=== PATIENT | female | born 1950 | race Caucasian/White ===

== ENCOUNTER → 2016-08-18 14:05 | Outpatient (CLI) | payer MEDICARE, BC | END | disposition home or self-care (01) | LOC: D.MRI 14:05 | DX: M79.671 Pain in right foot (principal) ==

== ENCOUNTER 2019-05-30 13:04 | Emergency (ER) | payer MEDICARE, BC ==
[~2019-05-30] VITALS: Ht 167.6 cm; Wt 71.4 kg
[2019-05-30 13:06] VITALS: Ht 167.6 cm; Wt 71.4 kg
[2019-05-30] MEDS ORDERED: TIAZAC/CARDIZE180 MG PO (13:10)
[2019-05-30] MEDS ORDERED: ZYRTEC10 MG PO (13:11)
[2019-05-30] MEDS ORDERED: LOW DOSE ASPIRI81 M1 PO (13:11)
[2019-05-30] MEDS ORDERED: VITAMIN B-121000 MCG PO (13:12)
[2019-05-30 14:31] LABS: BASOPHILS 0.5 % (0-2); EOSINOPHILS 2.8 % (0-7); IMMATURE GRANULOCYTES 0.1 % (0-5); LYMPHOCYTES 26.9 % (15-50); MCH 32.8 pg (26.0-34.0); MCHC 33.3 g/dL (31.0-37.0); MCV 98.5 fL (80.0-100.0); MEAN PLATELET VOLUME 11.1 fL (7.4-10.4); MONOCYTES 5.5 % (2-11); NEUTROPHILS 64.2 % (40-80); PLATELET COUNT 213 10x3/uL (130-400); RBC 4.57 10x6/uL (4.00-5.40); RDW 13.4 % (11.5-14.5); WBC 7.5 10x3/uL (4.8-10.8)
[2019-05-30 15:43] LABS: ALBUMIN 3.8 g/dL (3.4-5.0); ALKALINE PHOSPHATASE 72 U/L (46-116); ALT (SGPT) 22 U/L (10-68); BILIRUBIN - TOTAL 0.28 mg/dL (0.2-1.3); CALC OSMOLALITY 285 mosm/kg (275-300); CALCIUM 9.2 mg/dL (8.5-10.1); CARBON DIOXIDE 27.2 mmol/L (21.0-32.0); CHLORIDE - SERUM 105 mmol/L (98-107); CKMB 0.5 U/L (0.0-3.6); CREATINE KINASE 68 UL (21-215); CREATININE - SERUM 1.1 mg/dL (0.6-1.3); GLUCOSE 93 mg/dL (74-106); MAGNESIUM - SERUM 2.2 mg/dL (1.8-2.4); POTASSIUM - SERUM 3.9 mmol/L (3.5-5.1); PROTEIN - SERUM 6.9 g/dL (6.4-8.2); SODIUM 142 mmol/L (136-145); TROPONIN-I < 0.017 ng/mL (0.000-0.060); UREA NITROGEN 20 mg/dL (7-18); eGFR NON AFRICAN AMERICAN 52 mL/min (90-120)
[2019-05-30 16:07] LABS: APPEARANCE CLEAR (CLEAR); BILIRUBIN NEGATIVE (NEGATIVE); COLOR YELLOW (YELLOW); GLUCOSE NEGATIVE (NEGATIVE); KETONE NEGATIVE (NEGATIVE); NITRITE NEGATIVE (NEGATIVE); PROTEIN NEGATIVE (NEGATIVE); UROBILINOGEN NORMAL (NORMAL)
[2019-05-30 16:50] VITALS: BP 129/73
== END 2019-05-30 16:50 | disposition home or self-care (01) ==
LOC: D.ER 13:04
PROVIDERS: Family Medicine
DX: F07.81 Postconcussional syndrome (principal); R55 Syncope and collapse; I10 Essential (primary) hypertension

== ENCOUNTER → 2019-07-11 09:47 | Outpatient (CLI) | payer MEDICARE, BC ==
[2019-05-30 13:06] VITALS: BMI 25.4
[~2019-07-11 09:47] MED LIST: LOW DOSE ASPIRI81 M1 PO; TIAZAC/CARDIZE180 MG PO; VITAMIN B-121000 MCG PO; ZYRTEC10 MG PO
== END | disposition home or self-care (01) ==
LOC: D.HCCECHO 09:30
PROVIDERS: ATTEND Internal Medicine Cardiovascular Disease
DX: I10 Essential (primary) hypertension (principal)

== ENCOUNTER 2019-08-19 14:54 | Inpatient (IN) | payer MEDICARE, BC ==
[~2019-08-19] VITALS: Ht 167.6 cm; Wt 72.6 kg
[2019-09-06] MEDS ORDERED: VALTREX500 MG PO (14:51)
[2019-09-07] MEDS ORDERED: FLUTICASONE PRO16 GM NASAL (11:09)
[2019-09-07 12:31] LABS: CARBON DIOXIDE 30.1 mmol/L (21.0-32.0); CREATININE - SERUM 1.1 mg/dL (0.6-1.3); POTASSIUM - SERUM 4.1 mmol/L (3.5-5.1)
[2019-09-07 13:37] LABS: BASOPHILS 0.8 % (0-2); EOSINOPHILS 3.7 % (0-7); HEMATOCRIT 45.1 % (36.0-48.0); HEMOGLOBIN 15.2 g/dL (12-16); IMMATURE GRANULOCYTES 0.1 % (0-5); LYMPHOCYTES 38.5 % (15-50); MCH 32.3 pg (26.0-34.0); MCHC 33.7 g/dL (31.0-37.0); MCV 95.8 fL (80.0-100.0); MEAN PLATELET VOLUME 11.1 fL (7.4-10.4); NEUTROPHILS 49.9 % (40-80); PLATELET COUNT 246 10x3/uL (130-400); RBC 4.71 10x6/uL (4.00-5.40); RDW 13.1 % (11.5-14.5); WBC 7.7 10x3/uL (4.8-10.8)
[2019-09-07 14:10] LABS: BILIRUBIN NEGATIVE (NEGATIVE); GLUCOSE NEGATIVE (NEGATIVE); KETONE NEGATIVE (NEGATIVE); NITRITE NEGATIVE (NEGATIVE); UROBILINOGEN NORMAL (NORMAL)
[2019-09-07 14:11] LABS: BACTERIA FEW /hpf (NEGATIVE); EPITHELIAL CELLS 0-5 /hpf (0-5); RED CELLS - URINE 0-5 /hpf (0-5); WHITE CELLS - URINE RARE /hpf (NEGATIVE)
[2019-09-09 15:38] LABS: APTT 29.5 SECONDS (22.8-39.4); INR 0.95 (0.85-1.17); PROTIME 12.6 SECONDS (11.6-15.0)
[2019-09-13] VITALS (16 sets, daily range): BP systolic 98–140; BP diastolic 55–78; BMI 25.0; BMI 25.8
[2019-09-13 07:20] LABS: BILIRUBIN NEGATIVE (NEGATIVE); EPITHELIAL CELLS 0-5 /hpf (0-5); GLUCOSE NEGATIVE (NEGATIVE); KETONE NEGATIVE (NEGATIVE); NITRITE NEGATIVE (NEGATIVE); UROBILINOGEN NORMAL (NORMAL); WHITE CELLS - URINE 0-5 /hpf (NEGATIVE)
[2019-09-13 07:21] LABS: BACTERIA FEW /hpf (NEGATIVE); RED CELLS - URINE NONE SEEN /hpf (0-5)
--- NOTE | 2019-09-13 09:34 | NUR ---
ICE APPLIED, SCDS IN PLACE, MAX DOSE OF PAIN MEDICATION GIVEN FOR PACU AND PT STILL C/O PAIN AT INCISION SITE. REPOSITIONED HER AND CALLED REPORT TO MED 3 NURSE TO TAKE OVER. THEY HAVE ADDITIONAL PAIN MEDICATIONS AVAILABLE TO GIVE AND PT VERBALIZED UNDERSTANDING. XRAY HERE NOW ORDERED. CALLED ZANE PTS SPOUSE AND HE WILL MEET US IN NEW ROOM.
--- NOTE | 2019-09-13 10:24 | NUR ---
PT TO ROOM 1207. POST OP LEFT TOTAL KNEE. O2 AT 3L VIA NC. HOOKED UP TO MONITOR. COMPLAINS OF PAIN. ICE ON KNEE. OXY IR GIVEN. SIGNIFICANT OTHER AT BEDSIDE. WILL CONTINUE TO MONITOR.
--- NOTE | 2019-09-13 11:30 | NUR ---
RAPID RESPONSE ON PT DONE. O2 SAT DROPPED TO 30S. PT GIVEN NARCAN. NASAL TRUMPET PLACED INTO RIGHT NARE. PT NEVER LOST A PULSE. O2 SAT BACK UP TO 95% ON 3L.
--- NOTE | 2019-09-13 13:14 | MORECARE ---
CASE MANAGEMENT DISCHARGE SUMMARY PATIENT: JAMES CARDONA UNIT: [id number] ADM DATE: 09/13/19 AGE: 69 : 50 SEX: F [facility] AUTHOR: HIEU RAY PHYSICIAN: REFERRING PHYSICIAN: TRACEY HARRIS DO DATE OF SERVICE: 09/13/19 Discharge Plan Patient Name: JAMES CARDONA Facility: [facility]:[place] : 1950 Planned Disposition: Anticipated Discharge Date: Discharge Date: Expected LOS: 0 Initial Reviewer: [email or web address] Initial Review Date: 09/13/2019 Generated: 09/13/19 2:14 pm Patient Name: JAMES CARDONA Page 11996 at 1314 All edits/amendments must be made on the electronic document DICTATION DATE: 09/13/19 1314 IRRIGATION SYSTEM INSTALLER: LANEY 09/13/19 1314 RPT#: [id number] DC DATE: STATUS: ADM IN [facility] [address] [place] [address] END OF REPORT
--- NOTE | 2019-09-13 13:22 | MORECARE ---
CASE MANAGEMENT DISCHARGE SUMMARY PATIENT: JAMES CARDONA UNIT: [id number] ADM DATE: 09/13/19 AGE: 69 : 50 SEX: F [facility] AUTHOR: HIEU RAY PHYSICIAN: REFERRING PHYSICIAN: TRACEY HARRIS DO DATE OF SERVICE: 09/13/19 Discharge Plan Patient Name: JAMES CARDONA Facility: [facility]:[place] : 1950 Planned Disposition: Anticipated Discharge Date: Discharge Date: Expected LOS: 0 Initial Reviewer: [email or web address] Initial Review Date: 09/13/2019 Generated: 09/13/19 2:22 pm Last DP export: 09/13/19 12:14 p Patient Name: JAMES CARDONA Page 54556 at 1322 All edits/amendments must be made on the electronic document DICTATION DATE: 09/13/19 1322 DIRECTOR OF ONCOLOGY: LANEY 09/13/19 1322 RPT#: [id number] DC DATE: STATUS: ADM IN [facility] [address] [place] [address] END OF REPORT
--- NOTE | 2019-09-13 13:39 | MORECARE ---
CASE MANAGEMENT DISCHARGE SUMMARY PATIENT: JAMES CARDONA UNIT: [id number] ADM DATE: 09/13/19 AGE: 69 : 50 SEX: F ROOM/BED: D[facility] AUTHOR: HIEU RAY PHYSICIAN: REFERRING PHYSICIAN: TRACEY HARRIS DO DATE OF SERVICE: 09/13/19 Discharge Plan Patient Name: JAMES CARDONA Facility: [facility]:[place] : 1950 Planned Disposition: Anticipated Discharge Date: Discharge Date: Expected LOS: 0 Initial Reviewer: [email or web address] Initial Review Date: 09/13/2019 Generated: 09/13/19 2:39 pm Last DP export: 09/13/19 12:22 p Patient Name: JAMES CARDONA Page [id number] at 1339 All edits/amendments must be made on the electronic document DICTATION DATE: 09/13/19 1339 COAL TRAMMER: LANEY 09/13/19 1339 RPT#: [id number] DC DATE: STATUS: ADM IN [facility] [address] [place] [address] END OF REPORT
--- NOTE | 2019-09-13 13:48 | MORECARE ---
CASE MANAGEMENT DISCHARGE SUMMARY PATIENT: JAMES CARDONA UNIT: [id number] ADM DATE: 09/13/19 AGE: 69 : 50 SEX: F ROOM/BED: D.1207 AUTHOR: HIEU RAY PHYSICIAN: REFERRING PHYSICIAN: TRACEY HARRIS DO DATE OF SERVICE: 09/13/19 Discharge Plan Patient Name: JAMES CARDONA Facility: [facility]:[place] : 1950 Planned Disposition: Anticipated Discharge Date: Discharge Date: Expected LOS: 0 Initial Reviewer: [email or web address] Initial Review Date: 09/13/2019 Generated: 09/13/19 2:48 pm DCP- Discharge Planning Updated by [id number]: Annette Donnelly on 09/13/19 12:[address] Plan: [facility]. S/O Alfonso will provide transportation to and from therapy. CM met with patient to discuss initial discharge planning. Patient is in agreement to proceed with the assessment. Patient reports that she lives at home independently with her S/OAlfonso. Patient is still drowsy but oriented. Stairs/steps: 3 w/rails. PCP: Dr. Aliya Collins. Pharmacy: [facility]. Patient states they have been able to obtain all of their prescribed medications. HHS: No. DME: ZEB Cordova, CPM. Patient gives permission to speak with family members/care givers. Emergency contact: Alfonso Drivermata #[phone]. Patient is Independent with all ADL's, medication management BANQUET SET UP PERSON. CM discussed the availability of HH, Rehab, DME services. Patient states she will use [facility] OP Therapy and feels safe returning to previous living environment. Patient denies being hospitalized within the past 30 days. Patient denies the use of community resources BANQUET SET UP PERSON. Transportation at time of discharge: S/O Alfonso Yi. CM will follow and assist PRN with DC Needs. Last DP export: 09/13/19 12:39 p Patient Name: JAMES CARDONA Page 44475 at 1348 All edits/amendments must be made on the electronic document DICTATION DATE: 09/13/191347 LUSTERER: LANEY 09/13/191347 RPT#: [id number] DC DATE: STATUS: ADM IN [facility] [address] [place] [address] END OF REPORT
--- NOTE | 2019-09-13 14:00 | NUR ---
PT CONTINUES TO HAVE APNEIC EPISODES WHEN FALLING ASLEEP. HOOKED UP TO CONTINUOUS PULSE OX. WHEN AWAKE, PT SATS 94-97% ON 3L. WHEN PT FALLS ASLEEP, PT DESATS TO 70S. CONTINUING TO GET PT TO USE INCENTIVE SPIROMETRY AND TO COUGH AND DEEP BREATH. WILL CONTINUE TO MONITOR.
--- NOTE | 2019-09-13 15:12 | MORECARE ---
CASE MANAGEMENT DISCHARGE SUMMARY PATIENT: JAMES CARDONA UNIT: [id number] ADM DATE: 09/13/19 AGE: 69 : 50 SEX: F ROOM/BED: D.1207 AUTHOR: HIEU RAY PHYSICIAN: REFERRING PHYSICIAN: TRACEY HARRIS DO DATE OF SERVICE: 09/13/19 Discharge Plan Patient Name: JAMES CARDONA Facility: [facility]:[place] : 1950 Planned Disposition: Anticipated Discharge Date: Discharge Date: Expected LOS: 0 Initial Reviewer: [email or web address] Initial Review Date: 09/13/2019 Generated: 09/13/19 4:11 pm DCP- Discharge Planning Updated by [email or web address]: Annette Donnelly on 09/13/19 12:[address] Plan: [facility] Therapy. S/O Alfonso will provide transportation to and from therapy. CM met with patient to discuss initial discharge planning. Patient is in agreement to proceed with the assessment. Patient reports that she lives at home independently with her S/OAlfonso. Patient is still drowsy but oriented. Stairs/steps: 3 w/rails. PCP: Dr. Aliya Collins. Pharmacy: [facility]. Patient states they have been able to obtain all of their prescribed medications. HHS: No. DME: ZEB Cordova, CPM. Patient gives permission to speak with family members/care givers. Emergency contact: Alfonso Drivermata #[phone]. 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 CM discussed the availability of HH, Rehab, DME services. Patient states she will use [facility] OP Therapy and feels safe returning to previous living environment. Patient denies being hospitalized within the past 30 days. Patient denies the use of community resources ELECTRICAL CONTROLS TECHNICIAN. Transportation at time of discharge: S/O Alfonso Yi. CM will follow and assist PRN with DC Needs. Last DP export: 09/13/19 12:48 p Patient Name: JAMES CARDONA Page [id number] at 1512 All edits/amendments must be made on the electronic document DICTATION DATE: 09/13/191510 SLAT BASKET MAKER HELPER MACHINE: LANEY 09/13/191510 RPT#: [id number] DC DATE: STATUS: ADM IN [facility] [address] [place] [address] END OF REPORT
--- NOTE | 2019-09-13 16:04 | OP ---
PATIENT NAME: JAMES CARDONA MEDICAL RECORD: [id number] :50 LOCATION:D.Jana D.1207 ADMISSION DATE:09/13/19 SURGEON: TRAVIS HARRIS DO DATE OF OPERATION: 09/13/2019 PROCEDURE PERFORMED: Left total knee arthroplasty. PREOPERATIVE DIAGNOSES: Left knee osteoarthritis with severe valgus deformity. POSTOPERATIVE DIAGNOSES: Left knee osteoarthritis with severe valgus deformity. INDICATIONS: Ms. Cardona is a 69-year-old female who has been dealing with her knee pain for a long time. She has tried bracing, injections to no avail and all other manners of conservative treatment. She is tired dealing with it and wants something done surgically. I informed her that we could do a total knee and realign it and that she would be at risk for infection, bleeding, damage to nerves and vessels including the peroneal nerve. Due to her valgus deformity, having that stretched back out, complications of the hardware, fracture, bleeding, blood clots, and even and she signed a consent. SURGEON: Travis Harris DO. RADIO COMMUNICATIONS SUPERINTENDENT: Peggy Fernandez, certified surgical forceps fabricator. He assisted with closing and retraction. DESCRIPTION OF PROCEDURE: The patient received a block by anesthesia in the preoperative area. She was taken to the operative suite, she was given a gram of Ancef, 80 mg gentamicin and a gram of TXA. The patient was then taken to the operative suite, laid in supine position, sedated and LMA placed. The left lower extremity was prepped and draped in sterile fashion. Timeout was performed, everyone was in agreeance with the correct side, site, patient and procedure. I then marked out the incision of the anterior knee and covered in Ioban. We then made careful dissection through the skin, down the capsule and then with a fresh 10-blade a medial parapatellar approach. Then, I everted the patella, removed some of the fat pad and milled down the patella to fit prosthesis. We then entered the femoral canal, flexed up the knee, taken out the ACL and the femoral canal with a drill. The distal femur cut and then a proximal tibia cut measuring off the lateral side. 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 We then cut the tibia and remove that and brought the knee in extension and removed the menisci and released popliteal tendon due to the deformity as well as the posterolateral corner and we then measured the femur to be a 62.5 and cutting her in 3 degrees external rotation and then did a 4-in-1 cutting block and ensure there was no notching and did the posterior stabilized cutting on the notch of the femur, removed the PCL. I did have to release some of the PCL fibers that remained in order to get the femur to become neutral and I internally rotated as well as some of the MCL. Once the releases were done and the trial was put on and the knee was ranged and rotation marked on the tibia with tibial tray floated in, then sized the tibia to be a 67. This was reamed and then punched, and an extra hole was put in the tibia. I then irrigated out while the cement was mixed. The cement was then put in the tibia and on the implant and impacted in place. Excess cement was removed. Femur was then impacted on and a 12 poly put in between and brought out to extension. I then put the poly on, cleaned out the holes and a squeezer was used. We then put the povidine iodine mixture with 500 mL normal saline in the knee for 3 minutes. This was irrigated out with more than a liter OPERATIVE REPORT [id number] JAMES CARDONA of normal saline as the cement dried. We then sized up to be a 16 poly and fit very well in the extension and flexion and had good stability of varus and valgus stress, and the knee was aligned correctly. I then gave another gram of TXA and put August and vancomycin and tobramycin powder in the knee, closed the capsule with #2 Ethibond in a [id number]-[id number] fashion and the skin with 2-0 Vicryl in an inverted interrupted fashion. ZipLine was placed on the knee. Adaptic, 4 x 4s, ABD, Webril, Varun wrap and FADUMO stockings was placed on the knee. She was then awakened and taken to recovery in stable condition. Blood loss was approximately 200 mL. COMPLICATIONS: None. TRANSINT:[id number] Voice Confirmation ID: [id number] DOCUMENT ID: [id number] TRAVIS HARRIS DO at 1604 CC: [id number] DICTATION DATE: 09/13/1952 MOLDED FRAMES ASSEMBLER: 09/13/19 1241 ADM IN [facility] [address] [place] [id number]
--- NOTE | 2019-09-13 16:39 | NUR ---
PAGED DR AGARWAL.
[2019-09-13 17:12] LABS: BASOPHILS 0.1 % (0-2); EOSINOPHILS 0 % (0-7); HEMOGLOBIN 12.8 g/dL (12-16); IMMATURE GRANULOCYTES 0.1 % (0-5); LYMPHOCYTES 4.6 % (15-50); MCHC 33.7 g/dL (31.0-37.0); MEAN PLATELET VOLUME 10.7 fL (7.4-10.4); MONOCYTES 1.4 % (2-11); NEUTROPHILS 93.8 % (40-80); PLATELET COUNT 193 10x3/uL (130-400); RDW 13.2 % (11.5-14.5); WBC 11.1 10x3/uL (4.8-10.8)
[2019-09-13 17:23] LABS: ANION GAP 14.1 mmol/L (8-16); CALCIUM 8.2 mg/dL (8.5-10.1); CARBON DIOXIDE 26.3 mmol/L (21.0-32.0); CREATININE - SERUM 1.1 mg/dL (0.6-1.3); POTASSIUM - SERUM 4.4 mmol/L (3.5-5.1)
--- NOTE | 2019-09-13 18:12 | MORECARE ---
CASE MANAGEMENT DISCHARGE SUMMARY PATIENT: JAMES CARDONA UNIT: [id number] ADM DATE: 09/13/19 AGE: 69 : 50 SEX: F ROOM/BED: D.1207 AUTHOR: HIEU RAY PHYSICIAN: REFERRING PHYSICIAN: TRACEY HARRIS DO DATE OF SERVICE: 09/13/19 Discharge Plan Patient Name: JAMES CARDONA Facility: [facility]:[place] : 1950 Planned Disposition: Anticipated Discharge Date: Discharge Date: Expected LOS: 0 Initial Reviewer: [email or web address] Initial Review Date: 09/13/2019 Generated: 09/13/19 7:12 pm DCP- Discharge Planning Updated by [email or web address]: Annette Donnelly on 09/13/19 12:[address] Plan: [facility] Out[facility] Therapy. S/O Alfonso will provide transportation to and from therapy. CM met with patient to discuss initial discharge planning. Patient is in agreement to proceed with the assessment. Patient reports that she lives at home independently with her S/OAlfonso. Patient is still drowsy but oriented. Stairs/steps: 3 w/rails. PCP: Dr. Aliya Collins. Pharmacy: [facility]. Patient states they have been able to obtain all of their prescribed medications. HHS: No. DME: ZEB Cordova, CPM. Patient gives permission to speak with family members/care givers. Emergency contact: Alfonso Drivermata #[phone]. 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 CM discussed the availability of HH, Rehab, DME services. Patient states she will use [facility] OP Therapy and feels safe returning to previous living environment. Patient denies being hospitalized within the past 30 days. 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 Transportation at time of discharge: S/O Alfonso Yi. CM will follow and assist PRN with DC Needs. Last DP export: 09/13/19 2:12 p Patient Name: JAMES CARDONA Page [id number] at 1812 All edits/amendments must be made on the electronic document DICTATION DATE: 09/13/191811 TOE STAPLER: LANEY 09/13/191811 RPT#: [id number] DC DATE: STATUS: ADM IN [facility] [address] [place] [address] END OF REPORT
--- NOTE | 2019-09-13 19:35 | NUR ---
PT SITTING UP IN BED WITHOUT DISTRESS, AOX4. IV RIGHT FA INFUSING 1/2NS @ 50. O2 3L/NC, ON CONT PULSE OX, SATS 97%. LEFT KNEE INCISION DRESSING CDI. SCDS ON BILAT. PT TOOK SIP OF WATER AND CHOKED, DESAT TO 70S. NIKKI PECK APN ON UNIT, UPDATED ABOUT PT, ORDERED TO HOLD PO MEDS TONIGHT UNLESS BP MEDS. PT GOING TO CT AT THIS TIME, DISCONNECTED FROM IV, ON PORTABLE O2
--- NOTE | 2019-09-13 20:00 | NUR ---
PT BACK FROM CT. PT VOIDED IN BED. LINENS CHANGED. PT PLACED ON CPM AT THIS TIME. TOLERATING WELL. RESP AT BEDSIDE TO PLACE ON BIPAP
[2019-09-14] VITALS: BP 110/56
--- NOTE | 2019-09-14 00:24 | NUR ---
PT STATES PAIN /, GAVE TORADOL ORDERED. APPLIED ICE PACKS TO LEFT KNEE. WILL CTM
[2019-09-14 05:06] VITALS: BP 115/69
[2019-09-14 06:24] LABS: HEMATOCRIT 35.5 % (36.0-48.0); HEMOGLOBIN 11.9 g/dL (12-16); MCH 31.4 pg (26.0-34.0); MCHC 33.5 g/dL (31.0-37.0); MCV 93.7 fL (80.0-100.0); MEAN PLATELET VOLUME 11.4 fL (7.4-10.4); RBC 3.79 10x6/uL (4.00-5.40); RDW 13.3 % (11.5-14.5); WBC 10.9 10x3/uL (4.8-10.8)
[2019-09-14 09:20] VITALS: BP 97/50
[2019-09-14 10:45] VITALS: Ht 167.6 cm; Wt 72.6 kg
--- NOTE | 2019-09-14 12:03 | MORECARE ---
CASE MANAGEMENT DISCHARGE SUMMARY PATIENT: JAMES CARDONA UNIT: [id number] ADM DATE: 09/13/19 AGE: 69 : 50 SEX: F ROOM/BED: D.1207 AUTHOR: HIEU RAY PHYSICIAN: REFERRING PHYSICIAN: TRACEY HARRIS DO DATE OF SERVICE: 09/14/19 Discharge Plan Patient Name: JAMES CARDONA Facility: [facility]:[place] : 1950 Planned Disposition: Outpatient PT\OT Anticipated Discharge Date: Discharge Date: Expected LOS: 0 Initial Reviewer: [email or web address] Initial Review Date: 09/13/2019 Generated: 09/14/19 1:02 pm DCP- Discharge Planning Updated by [email or web address]: Annette Donnelly on 09/13/19 12:[address] Plan: [facility] Outpatient Therapy. S/O Alfonso will provide transportation to and from therapy. CM met with patient to discuss initial discharge planning. Patient is in agreement to proceed with the assessment. Patient reports that she lives at home independently with her S/OAlfonso. Patient is still drowsy but oriented. Stairs/steps: 3 w/rails. PCP: Dr. Aliya Collins. Pharmacy: [facility]. Patient states they have been able to obtain all of their prescribed medications. HHS: No. DME: ZEB Cordova, STEFF. Patient gives permission to speak with family members/care givers. Emergency contact: Alfonso Drivermata #[phone]. 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 CM discussed the availability of HH, Rehab, DME services. Patient states she will use [facility] OP Therapy and feels safe returning to previous living environment. Patient denies being hospitalized within the past 30 days. 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 Transportation at time of discharge: S/O Alfonso Yi. CM will follow and assist PRN with DC Needs. Last DP export: 09/13/19 5:12 p Patient Name: JAMES CARDONA Page [id number] at 1203 All edits/amendments must be made on the electronic document DICTATION DATE: 09/14/191201 BOARD MACHINE SET UP OPERATOR: LANEY 09/14/191201 RPT#: [id number] DC DATE: STATUS: ADM IN [facility] [address] [facility] [place] [address] END OF REPORT
--- NOTE | 2019-09-14 12:11 | MORECARE ---
CASE MANAGEMENT DISCHARGE SUMMARY PATIENT: JAMES CARDONA UNIT: [id number] ADM DATE: 09/13/19 AGE: 69 : 50 SEX: F ROOM/BED: D.1207 AUTHOR: CORYDOC PHYSICIAN: REFERRING PHYSICIAN: TRACEY HARRIS DO DATE OF SERVICE: 09/14/19 Discharge Plan Patient Name: JAMES CARDONA Facility: [facility]:[place] : 1950 Planned Disposition: Outpatient PT\OT Anticipated Discharge Date: Discharge Date: Expected LOS: 0 Initial Reviewer: [email or web address] Initial Review Date: 09/13/2019 Generated: 09/14/19 1:10 pm Comments DCP- Discharge Planning Updated by [email or web address]: Annette Donnelly on 09/14/19 11:[address] Plan: [x+1] Therapy, appointment 3:30 on 09/16/19. DCP- Discharge Planning Updated by [email or web address]: Annette Donnelly on 09/13/19 12:[address] Plan: [x+1] Outpatient Therapy. S/O Alfonso will provide transportation to and from therapy. CM met with patient to discuss initial discharge planning. Patient is in agreement to proceed with the assessment. Patient reports that she lives at home independently with her S/OAlfonso. Patient is still drowsy but oriented. Stairs/steps: 3 w/rails. PCP: Dr. Aliya Collins. Pharmacy: [facility]. Patient states they have been able to obtain all of their prescribed medications. HHS: No. DME: ZEB Cordova, STEFF. Patient gives permission to speak with family members/care givers. Emergency contact: Alfonso Drivermata #[phone]. 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 CM discussed the availability of HH, Rehab, DME services. Patient states she will use [x+1] OP Therapy and feels safe returning to previous living environment. Patient denies being hospitalized within the past 30 days. Patient denies the use of community resources HARDNESS TESTER. Transportation at time of discharge: S/O Alfonso Yi. CM will follow and assist PRN with DC Needs. Last DP export: 09/13/19 5:12 p Patient Name: JAMES CARDONA Page [id number] at 1211 All edits/amendments must be made on the electronic document DICTATION DATE: 09/14/191209 LOBSTERMAN: LANEY 09/14/191209 RPT#: [id number] DC DATE: STATUS: ADM IN [facility] [address] [place] [address] END OF REPORT
--- NOTE | 2019-09-14 18:17 | MORECARE ---
CASE MANAGEMENT DISCHARGE SUMMARY PATIENT: JAMES CARDONA UNIT: [id number] ADM DATE: 09/13/19 AGE: 69 : 50 SEX: F ROOM/BED: D.1207 AUTHOR: COYRDOC PHYSICIAN: REFERRING PHYSICIAN: TRACEY HARRIS DO DATE OF SERVICE: 09/14/19 Discharge Plan Patient Name: JAMES CARDONA Facility: [facility]:[place] : 1950 Planned Disposition: Outpatient PT\OT Anticipated Discharge Date: Discharge Date: Expected LOS: 0 Initial Reviewer: [email or web address] Initial Review Date: 09/13/2019 Generated: 09/14/19 7:17 pm Comments DCP- Discharge Planning Updated by [email or web address]: Annette Donnelly on 09/14/19 11:[address] Plan: [facility], appointment 3:30 on 09/16/19. DCP- Discharge Planning Updated by [email or web address]: Annette Donnelly on 09/13/19 12:[address] Plan: [facility]. S/O Alfonso will provide transportation to and from therapy. CM met with patient to discuss initial discharge planning. Patient is in agreement to proceed with the assessment. Patient reports that she lives at home independently with her S/OAlfonso. Patient is still drowsy but oriented. Stairs/steps: 3 w/rails. PCP: Dr. Aliya Collins. Pharmacy: [facility]. Patient states they have been able to obtain all of their prescribed medications. HHS: No. DME: ZEB Cordova, STEFF. Patient gives permission to speak with family members/care givers. Emergency contact: Alfonso Drivermata #[phone]. 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 CM discussed the availability of HH, Rehab, DME services. Patient states she will use [facility] and feels safe returning to previous living environment. Patient denies being hospitalized within the past 30 days. 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 Transportation at time of discharge: S/O Alfonso Yi. CM will follow and assist PRN with DC Needs. Last DP export: 09/14/19 11:11 a Patient Name: JAMES CARDONA Page [id number] at 1817 All edits/amendments must be made on the electronic document DICTATION DATE: 09/14/191816 DIRECT MAIL COORDINATOR: LANEY 09/14/191816 RPT#: [id number] DC DATE: STATUS: ADM IN [facility] [address] [place] [address] END OF REPORT
--- NOTE | 2019-09-14 19:00 | NUR ---
PT SITTING UP IN BED WITHOUT DISTRESS, AOX4. PLACED CPM ON LEFT LEG. DRESSING TO INCISION CDI. FADUMO HOSE PLACED ON BILAT PRIOR TO CPM. SCD TO RIGHT LEG. RIGHT FA IV SL. DENIES NEEDS AT THIS TIME. CL IN REACH, WILL CTM
[2019-09-14 20:00] VITALS: BP 107/61
--- NOTE | 2019-09-14 20:20 | NUR ---
PT STATES PAIN 10/13, GAVE TRAMADOL ORDERED. DENIES OTHER NEEDS. WILL CTM
--- NOTE | 2019-09-14 22:00 | NUR ---
CPM OFF AT THIS TIME
[2019-09-15] VITALS: BP 104/47
--- NOTE | 2019-09-15 04:00 | NUR ---
PT NAUSEOUS, GAVE ZOFRAN ORDERED. PT STATES PAIN 5/10 IN LEFT KNEE AT THIS TIME. OFFERED PT TRAMADOL, PT REFUSED AT THIS TIME STATING SHE IS JUST UNCOMFORTABLE FROM NAUSEA AND WILL SEE HOW ZOFRAN WORKS
[2019-09-15 04:06] VITALS: BP 138/81
--- NOTE | 2019-09-15 04:30 | NUR ---
PT NAUSEA IS BETTER, STATES PAIN IN KNEE IS NOW 7/10. GAVE TRAMADOL ORDERED. PT STATES SHE WILL CALL WHEN READY TO BE PLACED ON CPM
--- NOTE | 2019-09-15 05:00 | NUR ---
CPM ON AT THIS TIME
[2019-09-15 06:25] LABS: BASOPHILS 0.2 % (0-2); EOSINOPHILS 0.2 % (0-7); HEMATOCRIT 35.4 % (36.0-48.0); HEMOGLOBIN 11.8 g/dL (12-16); IMMATURE GRANULOCYTES 0.3 % (0-5); LYMPHOCYTES 26.7 % (15-50); MCH 31.9 pg (26.0-34.0); MCHC 33.3 g/dL (31.0-37.0); MONOCYTES 8.7 % (2-11); NEUTROPHILS 63.9 % (40-80); PLATELET COUNT 183 10x3/uL (130-400); RDW 13.9 % (11.5-14.5); WBC 9.3 10x3/uL (4.8-10.8)
[2019-09-15 06:37] LABS: ANION GAP 12.7 mmol/L (8-16); CALCIUM 8.2 mg/dL (8.5-10.1); CARBON DIOXIDE 28.1 mmol/L (21.0-32.0); CREATININE - SERUM 1.1 mg/dL (0.6-1.3); POTASSIUM - SERUM 3.8 mmol/L (3.5-5.1)
[2019-09-15 06:49] LABS: MCV 95.7 fL (80.0-100.0)
--- NOTE | 2019-09-15 07:34 | NUR ---
PT REC'D FROM [facility]. PT IS A&OX4. PT IS CURRENTLY ON CPM MACHINE. PT DENIES NEEDS AT THIS TIME. WCTM.
[2019-09-15] MEDS ORDERED: ELIQUIS2.5 MG PO (07:52)
[2019-09-15] MEDS ORDERED: ULTRAM50 MG PO (07:53)
[2019-09-15] MEDS ORDERED: VISTARIL50 MG PO (07:53)
[2019-09-15] MEDS ORDERED: OMNICEF300 MG PO (07:56)
[2019-09-15 08:13] VITALS: BP 105/62
--- NOTE | 2019-09-15 11:11 | NUR ---
IV ABX INFUSING. WILL REVIEW DISCHARGE WITH PT WHEN COMPLETE.
--- NOTE | 2019-09-15 11:47 | NUR ---
DRESSING TO LEFT KNEE CHANGED. INCISION IS CLEAN DRY AND WELL APPROXIMATED. SL TO RIGHT FOREARM D/C WITH CATHETER INTACT. AMBULATED TO BR WITH MIN ASSIST OF ONE.
--- NOTE | 2019-09-15 12:15 | NUR ---
PT DISCHARGE INSTRUCTIONS REV'D AND PT STATES UNDERSTANDING. IV DC'D CATH TIP INTACT AND DRESSING CHANGED TO MEPILEX AG. PT GIVEN EXTRA DRESSINGS TO TAKE HOME. PT SPOUSE HERE TO TAKE PT HOME. PT GIVEN HARD SCRIPTS AND POST OP INSTRUCTIONS. PT ESCORTED OUT BY HOSPITAL VOLUNTEER.
--- NOTE | 2019-09-15 16:20 | MORECARE ---
CASE MANAGEMENT DISCHARGE SUMMARY PATIENT: JAMES CARDONA UNIT: [id number] ADM DATE: 09/13/19 AGE: 69 : 50 SEX: F ROOM/BED: D.1207 AUTHOR: CORYDOC PHYSICIAN: REFERRING PHYSICIAN: TRACEY HARRIS DO DATE OF SERVICE: 09/15/19 Discharge Plan Patient Name: JAMES CARDONA Facility: [facility]:[place] : 1950 Planned Disposition: Outpatient PT\OT Anticipated Discharge Date: 09/15/19 Discharge Date: 09/15/2019 Expected LOS: 2 Initial Reviewer: [id number] Initial Review Date: 09/13/2019 Generated: 09/15/19 5:20 pm Comments DCP- Discharge Planning Updated by [email or web address]: Annette Donnelly on 09/14/19 11:[address] Plan: [facility], appointment 3:30 on 09/16/19. DCP- Discharge Planning Updated by [email or web address]: Annette Donnelly on 09/13/19 12:[address] Plan: [facility]. S/OAlfonso will provide transportation to and from therapy. CM met with patient to discuss initial discharge planning. Patient is in agreement to proceed with the assessment. Patient reports that she lives at home independently with her S/OAlfonso. Patient is still drowsy but oriented. Stairs/steps: 3 w/rails. PCP: Dr. Aliya Collins. Pharmacy: [facility]. Patient states they have been able to obtain all of their prescribed medications. HHS: No. DME: [facility], [facility]. Patient gives permission to speak with family members/care givers. Emergency contact: Alfonso Yi #[phone]. 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 CM discussed the availability of HH, Rehab, DME services. Patient states she will use [facility] and feels safe returning to previous living environment. Patient denies being hospitalized within the past 30 days. 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 Transportation at time of discharge: S/O Alfonso Yi. CM will follow and assist PRN with DC Needs. 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 Reviewer: [email or web address] Anjali Annette Cony Notice Issued Date-Time: 09/15/2019 10:42 Notice Type: IM Discharge Notice Notice Delivered To: Patient Relationship to Patient: Self Oil Plant Operator Name: James cardona Delivery Method: HAND - Hand Delivered Anisha Days: Prior Verbal Notification: Recipient Understood Notice: Yes Recipient Signature: Yes Med Rec Note Co-signed by Attending: Coverage Notice Comment: DC IMM letter signed/delivered to patient. Original on chart. Last DP export: 09/14/19 5:17 p Patient Name: JAMES CARDONA Page [id number] at 1620 All edits/amendments must be made on the electronic document DICTATION DATE: 09/15/19 1620 FLANGE TURNER: LANEY 09/15/19 1620 RPT#: [id number] DC DATE:09/15/19 STATUS: DIS IN [facility] [address] [place] [address] END OF REPORT
--- NOTE | 2019-09-15 16:29 | MORECARE ---
CASE MANAGEMENT DISCHARGE SUMMARY PATIENT: JAMES CARDONA UNIT: [id number] ADM DATE: 09/13/19 AGE: 69 : 50 SEX: F ROOM/BED: D.1207 AUTHOR: CORYDOC PHYSICIAN: REFERRING PHYSICIAN: TRACEY HARRIS DO DATE OF SERVICE: 09/15/19 Discharge Plan Patient Name: JAMES CARDONA Facility: [facility]:[place] : 1950 Planned Disposition: Outpatient PT\OT Anticipated Discharge Date: 09/15/19 Discharge Date: 09/15/2019 Expected LOS: 2 Initial Reviewer: [email or web address] Initial Review Date: 09/13/2019 Generated: 09/15/19 5:29 pm Comments DCP- Discharge Planning Updated by [email or web address]: Annette Donnelly on 09/14/19 11:[address] Plan: [facility], appointment 3:30 on 09/16/19. DCP- Discharge Planning Updated by [email or web address]: Annette Donnelly on 09/13/19 12:[address] Plan: [facility]. S/OAlfonso will provide transportation to and from therapy. CM met with patient to discuss initial discharge planning. Patient is in agreement to proceed with the assessment. Patient reports that she lives at home independently with her S/OAlfonso. Patient is still drowsy but oriented. Stairs/steps: 3 w/rails. PCP: Dr. Aliya Bryson. Pharmacy: [facility]. Patient states they have been able to obtain all of their prescribed medications. HHS: No. DME: [facility], [facility]. Patient gives permission to speak with family members/care givers. Emergency contact: Alfonso Yi #[phone]. 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 CM discussed the availability of HH, Rehab, DME services. Patient states she will use [facility] and feels safe returning to previous living environment. Patient denies being hospitalized within the past 30 days. 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 Transportation at time of discharge: S/O Alfonso Yi. CM will follow and assist PRN with DC Needs. DCPIA - Discharge Planning Initial Assessment Updated by [email or web address]: Annette Donnelly on 09/15/19 4:20 pm * Is the patient Alert and Oriented? Yes * PCP Dr. Aliya bryson * Pharmacy [facility] * Preadmission Environment Home with Family * ADLs Independent * Equipment Rolling Walker * Other Equipment CPM * List name and contact numbers for known caregivers / representatives who currently or will assist patient after discharge: Alfonso Yi (s/o) [phone] * Verbal permission to speak to the caregivers and representatives has been obtained from the patient. Yes * Community resources currently utilized None * Please name any agencies selected above. [facility] [phone] * Additional services required to return to the preadmission environment? Yes * Can the patient safely return to the preadmission environment? Yes * Has this patient been hospitalized within the prior 30 days at any hospital? 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 Reviewer: [email or web address] Anjali Donnelly Notice Issued Date-Time: 09/15/2019 10:42 Notice Type: IM Discharge Notice Notice Delivered To: Patient Relationship to Patient: Self School Plant Consultant Name: James cardona Delivery Method: HAND - Hand Delivered Anisha Days: Prior Verbal Notification: Recipient Understood Notice: Yes Recipient Signature: Yes Med Rec Note Co-signed by Attending: Coverage Notice Comment: DC IMM letter signed/delivered to patient. Original on chart. Last DP export: 09/15/19 3:20 p Patient Name: JAMES CARDONA Page [id number] at 1629 All edits/amendments must be made on the electronic document DICTATION DATE: 09/15/191628 REGENERATOR OPERATOR: LANEY 09/15/191628 RPT#: [id number] DC DATE:09/15/19 STATUS: DIS IN [place] [id number] [place] [address] END OF REPORT
== END 2019-09-15 12:17 | disposition home or self-care (01) | DRG 469 ==
LOC: D.M3 09-13 05:00 → D.SDCHOLD 09-13 05:00 → D.M3 09-13 09:04 → D.SDCHOLD 09-13 10:00 → D.M3 09-15 12:17
PROVIDERS: Internal Medicine Nephrology; ADMIT Orthopaedic Surgery; ATTEND Orthopaedic Surgery
PROC: 5A09357 Assistance with Respiratory Ventilation, Less than 24 Consecutive Hours, Continuous Positive Airway Pressure (ICD-10-PCS; 2019-09-13)
PROC: 0SRD0J9 Replacement of Left Knee Joint with Synthetic Substitute, Cemented, Open Approach (ICD-10-PCS; principal; 2019-09-13 07:00)
DX: M17.12 Unilateral primary osteoarthritis, left knee (principal); G92 Toxic encephalopathy; J96.01 Acute respiratory failure with hypoxia; N39.0 Urinary tract infection, site not specified; M21.062 Valgus deformity, not elsewhere classified, left knee; I10 Essential (primary) hypertension; T40.605A Adverse effect of unspecified narcotics, initial encounter; Y92.239 Unspecified place in hospital as the place of occurrence of the external cause; M81.0 Age-related osteoporosis without current pathological fracture; Z87.891 Personal history of nicotine dependence

== ENCOUNTER → 2020-12-07 08:50 | Outpatient (CLI) | payer MEDICARE, BC ==
[2019-09-14 10:45] VITALS: BMI 25.8
--- NOTE | ~2020-12-07 | ST ---
PATIENT:JAMES CARDONA MEDICAL RECORD: [id number] SEX: F LOCATION:[facility] ORDER #: ADMISSION DATE: 12/07/20 AGE OF PATIENT: 70 REFERRING PHYSICIAN: INTERPRETING PHYSICIAN: ANGIE PAYNE MD DATE OF SERVICE: 12/07/2020 NUCLEAR STRESS TEST Gated is normal, normal wall motion, normal EF, calculated EF 90%. SPECT imaging: SPECT imaging performed. Short axis view shows good uptake along the anterior wall, lateral wall and inferior wall. Horizontal axis confirms good uptake along the anterior wall and inferior wall. Vertical axis confirms good uptake along the lateral wall and septum. FINAL IMPRESSION: 1. Normal gated, normal wall motion, EF 90%. 2. Normal SPECT imaging. FINAL RECOMMENDATION: The scan is felt low risk for myocardial ischemia or previous myocardial infarction. LV function remains normal. Continue medical management and risk factor modification recommended. TRANSINT:[id number] Voice Confirmation ID: [id number] DOCUMENT ID: [id number] ANGIE PAYNE MD CC: [id number] DICTATION DATE: 12/09/20 1524 STAFF PHYSICAL THERAPY ASSISTANT: 12/10/20 0357 DEP CLI 12/07/20 [id number] [place] [address]
[~2020-12-07 08:50] MED LIST changes: +ELIQUIS2.5 MG PO; +FLUTICASONE PRO16 GM NASAL; +OMNICEF300 MG PO; +ULTRAM50 MG PO; +VALTREX500 MG PO; +VISTARIL50 MG PO
== END | disposition home or self-care (01) ==
LOC: D.HCCARDIO 08:50
PROVIDERS: ATTEND Internal Medicine Interventional Cardiology
DX: R07.89 Other chest pain (principal)